=== PATIENT | female | born 1930 | race Caucasian/White ===

== ENCOUNTER → 2016-06-16 | Outpatient (CLI) | payer BC ==
[~2016-06-16] MED LIST: ACET-1257 PO; ADVIN10050 INH; CEPH500C2 PO; CHOL100027 PO; ESCI1TAB6 PO; ESOM20CA PO; FAMO20TA11 PO; FOLI1TAB7 PO; HYDR-5688 PO; LEVO50TA6 PO; MAGIC MIX PO; MELA1TAB5 PO; MULT-188 PO; POLY99.02 OP; PRD/1 PO; RANI150T2 PO; SERT50TA PO; XRL10 PO; ZOLE5INJ INJ
--- NOTE | 2016-06-16 10:24 | DIAGNOSTIC IMAGING REPORT ---
ULTRASOUND ABDOMEN COMPLETE CLINICAL HISTORY: Epigastric abdominal pain. COMPARISON STUDY: Abdominal CT dated 03/27/2014. TECHNIQUE: Real-time, grayscale, and color flow sonography of the abdomen was performed. Images are reviewed in the transverse and longitudinal planes. FINDINGS: Liver: The liver is normal in size and echotexture. There is no intrahepatic biliary ductal dilatation. The main portal vein is patent. Gallbladder: An echogenic 7 mm nonshadowing structure is noted near the gallbladder fundus. This may represent a small amount of tumefactive sludge or small polyp. The gallbladder is otherwise normal in appearance. No gallstones are identified. There is no gallbladder wall thickening or pericholecystic fluid. A sonographic Anderson's sign is reportedly absent. The common bile duct measures up to 0.6 cm in diameter. Pancreas: Visualized portions of the pancreatic head and body are normal in appearance. The pancreas duct is mildly dilated measuring up to 4 mm. This is unchanged in [address] Spleen: The spleen is normal in size and echotexture, measuring 7.1 cm in length. There are small calcified splenic granulomas. Kidneys: The kidneys demonstrate cortical atrophy. There is no hydronephrosis. The right kidney measures 10.0 cm in length and the left kidney measures 9.6 cm in length. No shadowing calculi are identified. Abdominal vasculature: Visualized portions of the abdominal aorta are normal in caliber noting atherosclerotic plaque and regularity. Ascites: None. IMPRESSION: No acute sonographic abnormality is identified. See above. Electronically signed by: Bonifacio Wood M.D. 06/16/2016 10:22 AM Dictated Date/Time: 06/16/2016 10:18 AM
== END | disposition home or self-care (01) ==
LOC: C.ULTRBC 09:00
PROVIDERS: ATTEND Internal Medicine Geriatric Medicine
DX: R10.13 Epigastric pain (principal)

== ENCOUNTER → 2016-06-22 | Outpatient (CLI) | payer BC ==
--- NOTE | 2016-06-22 15:18 | DIAGNOSTIC IMAGING REPORT ---
THORACIC SPINE 3 VIEWS ROUTINE CLINICAL HISTORY: EPIGASTRIC PAIN, E83.52 R39.15 R35.0 COMPARISON STUDY: No previous studies for comparison. FINDINGS: The paraspinal line is not displaced. The bones are osteopenic. There are mild multilevel degenerative changes. No acute fractures or subluxations are visualized on conventional radiographic imaging. No destructive lesions are evident IMPRESSION: Osteopenia. Multilevel degenerative change. No acute fractures are visualized. Electronically signed by: Antony Joe M.D. 06/22/2016 3:16 PM Dictated Date/Time: 06/22/2016 3:16 PM
[2016-06-22 17:00] LABS: URINE APPEARANCE CLEAR (CLEAR); URINE BILIRUBIN NEG (NEG); URINE COLOR YELLOW; URINE NITRITE NEG (NEG); URINE SPECIFIC GRAVITY 1.011 (1.000-1.030); UROBILINOGEN NEG (NEG); ZZUR CULT IF INDIC CLEAN CATCH NO
[2016-06-22 17:15] LABS: MANUAL MICROSCOPIC REQUIRED? NO; REVIEW REQ? NO
[2016-06-22 17:18] LABS: BLOOD UREA NITROGEN 20 mg/dl (7-18); BUN/CREATININE RATIO 18.2 (10-20); CALCIUM 9.1 mg/dl (8.5-10.1); CARBON DIOXIDE 25 mmol/L (21-32); CHLORIDE 107 mmol/L (98-107); GLUCOSE 91 mg/dl (70-99); POTASSIUM 4.8 mmol/L (3.5-5.1); SODIUM 141 mmol/L (136-145)
--- NOTE | 2016-06-27 13:30 | CODING QUERY MEDICAL NECESSITY ---
SUPPORTING DIAGNOSIS NEEDED A supporting diagnosis is required for the test/procedure performed on this patient in order for us to be reimbursed by the patient's insurance. Please provide a supporting diagnosis for the following test/procedure listed below next to the test name along with your signature. *If there is no additional diagnosis for this patient that would support the following test/procedure please document that below next to the test/procedure. Test(s)/Procedure(s) that require a supporting diagnosis: DOS 06/22 * Vitamin B12 DIAGNOSIS: Provider Signature: Date: Thank you Irma Petty Health Information Management Once completed, please kindly fax back to [phone] For questions please call [phone]
== END | disposition home or self-care (01) ==
LOC: C.LABBC 14:50
PROVIDERS: ATTEND Internal Medicine Geriatric Medicine
DX: R10.13 Epigastric pain (principal); R39.15 Urgency of urination; R35.0 Frequency of micturition; I10 Essential (primary) hypertension; E03.9 Hypothyroidism, unspecified; E55.9 Vitamin D deficiency, unspecified; J45.909 Unspecified asthma, uncomplicated; E78.5 Hyperlipidemia, unspecified; J43.9 Emphysema, unspecified; E83.52 Hypercalcemia; S72.91XA Unspecified fracture of right femur, initial encounter for closed fracture; X58.XXXA Exposure to other specified factors, initial encounter; M85.88 Other specified disorders of bone density and structure, other site

== ENCOUNTER → 2016-06-29 | Outpatient (CLI) | payer BC ==
--- NOTE | 2016-06-29 15:17 | DIAGNOSTIC IMAGING REPORT ---
RIGHT SHOULDER MIN 2 VIEWS ROUTINE, RIGHT HUMERUS MIN 2 VIEWS ROUTINE CLINICAL HISTORY: M79.603 Pain of upper [id number] Right COMPARISON STUDY: None. FINDINGS: No fracture or dislocation within the right shoulder or right humerus. The right clavicle is intact. Mild degenerative changes at the glenohumeral joint. Soft tissues are unremarkable. Questionable multiple tiny lucent lesions seen throughout the humerus versus osteopenia. IMPRESSION: 1. No acute fracture dislocation within the right shoulder right humerus. 2. Questionable multiple tiny lucent lesions seen within the right humerus. This could be due to the patient's diffuse osteopenia. However, clinical/laboratory correlation recommended to evaluate for underlying multiple myeloma. Electronically signed by: Yunior Alonzo M.D. 06/29/2016 3:16 PM Dictated Date/Time: 06/29/2016 3:11 PM
--- NOTE | 2016-06-29 15:17 | DIAGNOSTIC IMAGING REPORT ---
RIGHT SHOULDER MIN 2 VIEWS ROUTINE, RIGHT HUMERUS MIN 2 VIEWS ROUTINE CLINICAL HISTORY: M79.603 Pain of upper [id number] Right COMPARISON STUDY: None. FINDINGS: No fracture or dislocation within the right shoulder or right humerus. The right clavicle is intact. Mild degenerative changes at the glenohumeral joint. Soft tissues are unremarkable. Questionable multiple tiny lucent lesions seen throughout the humerus versus osteopenia. IMPRESSION: 1. No acute fracture dislocation within the right shoulder right humerus. 2. Questionable multiple tiny lucent lesions seen within the right humerus. This could be due to the patient's diffuse osteopenia. However, clinical/laboratory correlation recommended to evaluate for underlying multiple myeloma. Electronically signed by: Yunior Alonzo M.D. 06/29/2016 3:16 PM Dictated Date/Time: 06/29/2016 3:11 PM
== END | disposition home or self-care (01) ==
LOC: C.RADBC 14:41
PROVIDERS: ATTEND Internal Medicine Geriatric Medicine
DX: M79.603 Pain in arm, unspecified (principal)

== ENCOUNTER → 2016-06-30 | Outpatient (CLI) | payer BC | END | disposition home or self-care (01) | LOC: C.LABBC 12:29 | PROVIDERS: ATTEND Internal Medicine Geriatric Medicine | DX: M79.603 Pain in arm, unspecified (principal); R93.8 Abnormal findings on diagnostic imaging of other specified body structures ==

== ENCOUNTER 2016-09-24 21:25 | Emergency (ER) | payer BC ==
[~2016-09-24] VITALS: Ht 146.1 cm; Wt 50.8 kg
[~2016-09-24 21:25] MED LIST changes: -ACET-1257 PO; -ADVIN10050 INH; -CEPH500C2 PO; -FAMO20TA11 PO; -FOLI1TAB7 PO; -HYDR-5688 PO; -MAGIC MIX PO; -MELA1TAB5 PO; -PRD/1 PO; -SERT50TA PO; -XRL10 PO
[2016-09-24 21:31] VITALS: TEMP 36.3; Ht 146.1 cm; Wt 50.8 kg
[2016-09-24 21:43] VITALS: O2SAT 96
--- NOTE | 2016-09-24 21:55 | EMERGENCY ROOM VISIT NOTE ---
History Report prepared by Esther: Dominic Garcia Under the Supervision of: Dr. Terence Nava D.O. First contact with patient: 21:42 Chief Complaint: SHORTNESS OF BREATH Stated Complaint: SOB,CHEST PAINS History of Present Illness The patient is an 85 year old female who presents to the Emergency Room with complaints of persistent shortness of breath that started today. The shortness of breath became worse over the past hour. She denies any worsening or reliving factors. She also complains of headache and left-sided rib discomfort rated 4/ 10 in severity. She is a smoker and has a cough at baseline but denies any increased coughing. The patient daughter notes that the patient has also been anxious. Source of History: patient Onset: today Position: other (respiratory) Quality: other (short of breath) Timing: worsening Modifying Factors (Worsening): other (none) Modifying Factors (Relieving): other (none) Associated Symptoms: + chest pain, + headache, No cough Review of Systems See HPI for pertinent positives and negatives. A total of ten systems were reviewed and were otherwise negative. Past Medical & Surgical Medical Problems: (1) ESOPHAGEAL REFLUX (2) Gastric ulcer (3) HYPERTENSION NOS (4) MAL RADHA URETERIC ORIFICE (5) SENILE OSTEOPOROSIS Family History FH: cancer Social History Smoking Status: Current Every Day Smoker Alcohol Use: none Drug Use: none Marital Status: Housing Status: lives with family Occupation Status: retired Current/Historical Medications Scheduled Cholecalciferol (Vitamin D 1000 Unit), 1,000 UNITS PO DAILY Esomeprazole Magnesium (Nexium), 20 MG PO DAILY Famotidine (Pepcid), 20 MG PO QAM Fluticasone Prop/Salmeterol (Advair Diskus 100-50 Mcg/Dose), 1 PUFF INH BID Folic Acid (Folvite), 1 MG PO QAM Levothyroxine Sodium (Levothyroxine Sodium), 50 MCG PO DAILY Melatonin (Kp Melatonin), 3 MG PO HS Multiple Vitamins W/ Minerals (Ocuvite), 1 TAB PO DAILY Prednisone (Prednisone), 3 MG PO DAILY Rivaroxaban (Xarelto), 15 MG PO DAILY Sertraline (Zoloft), 50 MG PO QAM Scheduled PRN Acetaminophen (Tylenol Extra Strength), 1,000 MG PO TID PRN for Pain [Magic Mix], 5 ML PO QID PRN for DIRECTED Allergies Coded Allergies: Nitrofurantoin (Verified Adverse Reaction, Intermediate, RASH, 09/24/16) Physical Exam Vital Signs Date Time Temp Pulse Resp B/P Pulse Ox O2 Delivery O2 Flow Rate FiO2 09/24/16 23:04 68 22 98/72 96 Nasal Cannula 4.0 09/24/16 22:06 Nasal Cannula 2.0 09/24/16 21:56 80 09/24/16 21:43 96 Nasal Cannula 2.0 09/24/16 21:43 96 Nasal Cannula 2.0 09/24/16 21:31 36.3 93 26 128/86 90 Room Air Physical Exam GENERAL: Awake, alert, well-appearing, in no distress HENT: Normocephalic, atraumatic. Oropharynx unremarkable. EYES: Normal conjunctiva. Sclera non-icteric. NECK: Supple. No nuchal rigidity. FROM. No JVD. RESPIRATORY: Clear to auscultation. CARDIAC: Regular rate, normal rhythm. Extremities warm and well perfused. Pulses equal. ABDOMEN: Soft, non-distended. No tenderness to palpation. No rebound or guarding. No masses. RECTAL: Deferred. MUSCULOSKELETAL: Chest examination reveals no tenderness. The back is symmetrical on inspection without obvious abnormality. There is no CVA tenderness to palpation. No joint edema. LOWER EXTREMITIES: Calves are equal size bilaterally and non-tender. No edema. No discoloration. NEURO: Normal sensorium. No sensory or motor deficits noted. SKIN: No rash or jaundice noted. PSYCH: Appears anxious. Medical Decision & Procedures ER Provider Diagnostic Interpretation: X ray results as stated below per my interpretation and radiologist interpretation. Other radiology results as stated below per my review and radiologist interpretation CHEST ONE VIEW PORTABLE HISTORY: Atypical CHEST PAIN COMPARISON: Chest 03/10/2016. FINDINGS: No new focal lung consolidations to suggest pneumonia. No evidence for pulmonary edema. The heart is stable in size. No pleural effusions. No pneumothorax. 8 mm nodular density within the left upper lobe is again noted. Mild emphysema and chronic interstitial thickening persists. IMPRESSION: No significant change compared to the prior study. No acute process. A millimeter nodular density is again noted within the left upper lobe. Electronically signed by: Yunior Alonzo M.D. 09/24/2016 10:44 PM Dictated Date/Time: 09/24/2016 10:42 PM CHEST CTA for PULMONARY ARTERIES CT DOSE: 162.49 mGy.cm HISTORY: Short of breath. TECHNIQUE: Multiaxial CT images of the chest were performed following the intravenous administration of contrast to evaluate the pulmonary arteries. Maximal intensity projection images were also obtained. COMPARISON STUDY: Chest CT 04/14/2014. FINDINGS: No evidence for pulmonary embolus. Biapical pleural-parenchymal scarring, unchanged. Stable partially calcified 7 mm nodular density within the left upper lobe. This corresponds the chest x-ray abnormality. The long-term stability favors a benign process such as scarring. Moderate emphysema. A 5 mm nodule within left upper lobe in image 139. Bibasilar densities consistent with subsegmental atelectasis. The central airways are patent. No pleural effusions. No pneumothorax. Normal caliber thoracic aorta. No evidence for dissection within the ascending aorta or aortic arch. Poor opacification of the descending thoracic aorta limits evaluation for a dissection. No mediastinal or hilar lymphadenopathy. Calcified hepatic and splenic granulomas. IMPRESSION: 1. No evidence for pulmonary embolus. 2. Emphysema. 3. A 5 mm indeterminate pulmonary nodule within the left upper lobe. Please refer to the chart below for recommended follow-up. Electronically signed by: Yunior Alonzo M.D. 09/24/2016 11:18 PM Dictated Date/Time: 09/24/2016 11:10 PM Laboratory Results 09/24/16 21:45 Red Blood Count 5.39, Mean Corpuscular Volume 95.2, Mean Corpuscular Hemoglobin 33.2, Mean Corpuscular Hemoglobin Concent 34.9, Mean Platelet Volume 10.5, Neutrophils (%) (Auto) 62.5, Lymphocytes (%) (Auto) 28.9, Monocytes (%) (Auto) 7.2, Eosinophils (%) (Auto) 0.8, Basophils (%) (Auto) 0.3, Neutrophils # (Auto) 5.45, Lymphocytes # (Auto) 2.53, Monocytes # (Auto) 0.63, Eosinophils # (Auto) 0.07, Basophils # (Auto) 0.03 09/24/16 21:45 Test 09/24/16 21:45 09/24/16 21:52 White Blood Count 8.74 K/uL (4.8-10.8) Red Blood Count 5.39 M/uL (4.2-5.4) Hemoglobin 17.9 g/dL (12.0-16.0) Hematocrit 51.3 % (37-47) Mean Corpuscular Volume 95.2 fL (80-100) Mean Corpuscular Hemoglobin 33.2 pg (25-34) Mean Corpuscular Hemoglobin Concent 34.9 g/dl (32-36) Platelet Count 306 K/uL (130-400) Mean Platelet Volume 10.5 fL (7.4-10.4) Neutrophils (%) (Auto) 62.5 % Lymphocytes (%) (Auto) 28.9 % Monocytes (%) (Auto) 7.2 % Eosinophils (%) (Auto) 0.8 % Basophils (%) (Auto) 0.3 % Neutrophils # (Auto) 5.45 K/uL (1.4-6.5) Lymphocytes # (Auto) 2.53 K/uL (1.2-3.4) Monocytes # (Auto) 0.63 K/uL (0.11-0.59) Eosinophils # (Auto) 0.07 K/uL (0-0.5) Basophils # (Auto) 0.03 K/uL (0-0.2) RDW Standard Deviation 46.2 fL (36.4-46.3) RDW Coefficient of Variation 13.3 % (11.5-14.5) Immature Granulocyte % (Auto) 0.3 % Immature Granulocyte # (Auto) 0.03 K/uL (0.00-0.02) Anion Gap 9.0 mmol/L (3-11) Est Creatinine Clear Calc Drug Dose 24.3 ml/min Estimated GFR () 48.1 Estimated GFR (Non- 41.5 BUN/Creatinine Ratio 15.0 (10-20) Calcium Level 10.0 mg/dl (8.5-10.1) Total Bilirubin 0.3 mg/dl (0.2-1) Direct Bilirubin < 0.1 mg/dl (0-0.2) Aspartate Amino Transf (AST/SGOT) 27 U/L (15-37) Alanine Aminotransferase (ALT/SGPT) 28 U/L (12-78) Alkaline Phosphatase 81 U/L (45-117) Total Protein 8.1 gm/dl (6.4-8.2) Albumin 3.8 gm/dl (3.4-5.0) Bedside D-Dimer > 450 ng/mlFEU (0-450) Bedside Troponin I 0.000 ng/ml (0-0.045) WM-Hov-L-Type Natriuretic Peptide 807 pg/ml (0-1800) Laboratory results reviewed by me Medications Administered Medications (Trade) Dose Ordered Sig/Quentin Route Start Time Stop Time Status Last Admin Dose Admin Ondansetron HCl (Zofran Inj) 4 mg NOW STAT IV 09/24/16 22:15 09/24/16 22:16 DC 09/24/16 22:20 4 MG ECG Indication: SOB/dyspnea Rate (beats per minute): 82 Rhythm: sinus rhythm Findings: PAC, no acute ischemic change, left axis deviation ED Course 2142: The patient was evaluated in room A4b. A complete history and physical exam was performed. 2215: Zofran 4 mg IV. 2335: Reassessed the patient and discussed the workup. She is in no distress and would like to go home. Medical Decision Differential diagnosis includes pneumonia, bronchitis, PE, acute coronary syndrome, anxiety. Patient had an elevated d-dimer patient's CAT scan of the chest was negative for pulmonary embolism. Patient on reexamination is not hypoxic in no distress no current pain at 2330. Patient would like to go home. Discussed the workup with the patient and patient's family at bedside told to return if she has increased pain or any concerns Impression Primary Impression: Chronic obstructive pulmonary disease Additional Impression: Chest pain Scribe Attestation The scribe's documentation has been prepared under my direction and personally reviewed by me in its entirety. I confirm that the note above accurately reflects all work, treatment, procedures, and medical decision making performed by me. Departure Information Dispostion Home / Self-Care Referrals Ronal Knight M.D. (PCP) Forms HOME CARE DOCUMENTATION FORM, IMPORTANT VISIT INFORMATION Patient Instructions ED Dyspnea Shortness of Breath, My [facility] Problem Qualifiers Primary Impression: Chronic obstructive pulmonary disease COPD type: unspecified COPD Qualified Codes: J44.9 - Chronic obstructive pulmonary disease, unspecified Additional Impression: Chest pain Chest pain type: intercostal pain Qualified Codes: R07.82 - Intercostal pain
[2016-09-24 22:02] LABS: BASO % 0.3 %; BASO ABS # 0.03 K/uL (0-0.2); COMPLETE YES; EOS % 0.8 %; HEMATOCRIT 51.3 % (37-47); IG% 0.3 %; LYMPH % 28.9 %; LYMPH ABS # 2.53 K/uL (1.2-3.4); MEAN CELL VOLUME 95.2 fL (80-100); MEAN CORPUSCULAR HEMOGLOBIN 33.2 pg (25-34); MEAN CORPUSCULAR HGB CONC 34.9 g/dl (32-36); MEAN PLATELET VOLUME 10.5 fL (7.4-10.4); MONO % 7.2 %; NEUT % 62.5 %; PLATELET COUNT 306 K/uL (130-400); RED BLOOD COUNT 5.39 M/uL (4.2-5.4); WHITE BLOOD COUNT 8.74 K/uL (4.8-10.8)
[2016-09-24] MEDS ORDERED: ONDANSETRON INJ 2 MG/ML 2 ML VIAL IV STA (22:15)
[2016-09-24 22:17] LABS: POINT OF CARE PRO-BNP 807 pg/ml (0-1800)
[2016-09-24 22:19] LABS: ALT/SGPT 28 U/L (12-78); BLOOD UREA NITROGEN 18 mg/dl (7-18); CARBON DIOXIDE 28 mmol/L (21-32); CHLORIDE 104 mmol/L (98-107); GLUCOSE 131 mg/dl (70-99); POTASSIUM 3.7 mmol/L (3.5-5.1); SODIUM 141 mmol/L (136-145)
[2016-09-24 22:22] LABS: ALKALINE PHOSPHATASE 81 U/L (45-117); AST/SGOT 27 U/L (15-37)
[2016-09-24] MEDS ORDERED: OPTIRAY 320 IV PRN (22:30)
[2016-09-24] MEDS ORDERED: SERT50TA PO (22:41)
[2016-09-24] MEDS ORDERED: XRL10 PO (22:41)
[2016-09-24] MEDS ORDERED: ADVIN10050 INH (22:41)
[2016-09-24] MEDS ORDERED: FOLI1TAB7 PO (22:41)
[2016-09-24] MEDS ORDERED: ACET-1257 PO (22:41)
[2016-09-24] MEDS ORDERED: MAGIC MIX PO (22:41)
[2016-09-24] MEDS ORDERED: PRD/1 PO (22:41)
[2016-09-24] MEDS ORDERED: MELA1TAB5 PO (22:41)
[2016-09-24] MEDS ORDERED: FAMO20TA11 PO (22:41)
--- NOTE | 2016-09-24 22:45 | DIAGNOSTIC IMAGING REPORT ---
CHEST ONE VIEW PORTABLE HISTORY: Atypical CHEST PAIN COMPARISON: Chest 03/10/2016. FINDINGS: No new focal lung consolidations to suggest pneumonia. No evidence for pulmonary edema. The heart is stable in size. No pleural effusions. No pneumothorax. 8 mm nodular density within the left upper lobe is again noted. Mild emphysema and chronic interstitial thickening persists. IMPRESSION: No significant change compared to the prior study. No acute process. A millimeter nodular density is again noted within the left upper lobe. Electronically signed by: Yunior Alonzo M.D. 09/24/2016 10:44 PM Dictated Date/Time: 09/24/2016 10:42 PM
--- NOTE | 2016-09-24 23:19 | DIAGNOSTIC IMAGING REPORT ---
CHEST CTA for PULMONARY ARTERIES CT DOSE: 162.49 mGy.cm HISTORY: Short of breath. TECHNIQUE: Multiaxial CT images of the chest were performed following the intravenous administration of contrast to evaluate the pulmonary arteries. Maximal intensity projection images were also obtained. COMPARISON STUDY: Chest CT 04/14/2014. FINDINGS: No evidence for pulmonary embolus. Biapical pleural-parenchymal scarring, unchanged. Stable partially calcified 7 mm nodular density within the left upper lobe. This corresponds the chest x-ray abnormality. The long-term stability favors a benign process such as scarring. Moderate emphysema. A 5 mm nodule within left upper lobe in image 139. Bibasilar densities consistent with subsegmental atelectasis. The central airways are patent. No pleural effusions. No pneumothorax. Normal caliber thoracic aorta. No evidence for dissection within the ascending aorta or aortic arch. Poor opacification of the descending thoracic aorta limits evaluation for a dissection. No mediastinal or hilar lymphadenopathy. Calcified hepatic and splenic granulomas. IMPRESSION: 1. No evidence for pulmonary embolus. 2. Emphysema. 3. A 5 mm indeterminate pulmonary nodule within the left upper lobe. Please refer to the chart below for recommended follow-up. Electronically signed by: Yunior Alonzo M.D. 09/24/2016 11:18 PM Dictated Date/Time: 09/24/2016 11:10 PM
[2016-09-24 23:50] VITALS: BP 152/92; PULSE 88; O2SAT 91
== END 2016-09-24 23:50 | disposition home or self-care (01) ==
LOC: C.EDB 21:26 → C.EDA 23:50
DX: J44.9 Chronic obstructive pulmonary disease, unspecified (principal); R07.9 Chest pain, unspecified; I10 Essential (primary) hypertension; K21.9 Gastro-esophageal reflux disease without esophagitis; M81.0 Age-related osteoporosis without current pathological fracture; F17.200 Nicotine dependence, unspecified, uncomplicated; Z87.11 Personal history of peptic ulcer disease; Z79.899 Other long term (current) drug therapy; Z88.8 Allergy status to other drugs, medicaments and biological substances; Z80.9 Family history of malignant neoplasm, unspecified; Z87.448 Personal history of other diseases of urinary system

== ENCOUNTER → 2016-11-08 | Outpatient (CLI) | payer BC ==
[~2016-11-08] MED LIST changes: +ACET-1257 PO; +ADVIN10050 INH; -ESCI1TAB6 PO; +FAMO20TA11 PO; +FOLI1TAB7 PO; +HYDR-5688 PO; +MAGIC MIX PO; +MELA1TAB5 PO; -POLY99.02 OP; +PRD/1 PO; -RANI150T2 PO; +SERT50TA PO; +XRL10 PO; -ZOLE5INJ INJ
[2016-11-08 13:54] LABS: BLOOD UREA NITROGEN 19 mg/dl (7-18); BUN/CREATININE RATIO 14.5 (10-20)
== END | disposition home or self-care (01) ==
LOC: C.LAB 12:08
PROVIDERS: ATTEND Urology
DX: C67.9 Malignant neoplasm of bladder, unspecified (principal)

== ENCOUNTER 2016-11-11 20:48 | Emergency (ER) | payer BC ==
[~2016-11-11] VITALS: Ht 144.8 cm; Wt 51.9 kg
[~2016-11-11 20:48] MED LIST changes: -HYDR-5688 PO
[2016-11-11 20:51] VITALS: TEMP 36.8; Ht 144.8 cm; Wt 51.9 kg
--- NOTE | 2016-11-11 22:03 | DIAGNOSTIC IMAGING REPORT ---
HEAD CT NONCONTRAST CT DOSE: 537.48 mGy.cm HISTORY: fall/head injury/ TECHNIQUE: Multiaxial CT images of the head were performed without the use of intravenous contrast. Automated exposure control was utilized for this study. Comparison: Head CT 03/10/2016. Findings: The paranasal sinuses and mastoid air cells are clear. The calvarium and skull base are intact. There is no mass, hematoma, midline shift, acute infarct. White matter hypodensity is nonspecific but suggestive of microvascular ischemic change. The ventricles and sulci demonstrate mild age-related involutional changes. Mild right lateral scalp swelling with a small laceration. Impression: No acute intracranial abnormality. Atrophy and microvascular ischemic changes. Right-sided scalp injury. Electronically signed by: Yunior Alonzo M.D. 11/11/2016 10:02 PM Dictated Date/Time: 11/11/2016 9:57 PM
--- NOTE | 2016-11-11 22:49 | EMERGENCY ROOM VISIT NOTE ---
ED Visit Note First contact with patient: 21:05 Staff note: I have reviewed the Patients chart and have discussed this case with my PA. I generally agree with the ED note and findings.
[2016-11-11 23:00] VITALS: BP 161/82; PULSE 91; O2SAT 98
[2016-11-11] MEDS ORDERED: HYDR-5688 PO (23:21)
--- NOTE | 2016-11-11 23:21 | EMERGENCY ROOM VISIT NOTE ---
History First contact with patient: 21:05 Chief Complaint: FALL Stated Complaint: HEAD BUMP, SORE RIBS AND ARM History of Present Illness The patient is a 86 year old female who presents to the Emergency Room with complaints of head injury and right rib pain. The patient states that she tripped over the leg of a rocking chair and fell forward striking the right side of her head on a step. She landed on her right ribs on the floor. The patient denies any loss of consciousness, dizziness, visual changes or headache. The patient denies any neck or back pain. The patient is mainly complaining of right rib pain. She has slight increased pain with inspiration and increased pain with movement. The patient is not on any blood thinners. Review of Systems 10 system review was performed and was negative unless stated otherwise history of present illness. Past Medical/Surgical History Medical Problems: (1) ESOPHAGEAL REFLUX (2) Gastric ulcer (3) HYPERTENSION NOS (4) MAL RADHA URETERIC ORIFICE (5) SENILE OSTEOPOROSIS Family History FH: cancer Social History Smoking Status: Current Every Day Smoker Alcohol Use: none Drug Use: none Marital Status: Housing Status: lives with family Occupation Status: retired Current/Historical Medications Scheduled Cholecalciferol (Vitamin D 1000 Unit), 1,000 UNITS PO DAILY Esomeprazole Magnesium (Nexium), 20 MG PO DAILY Famotidine (Pepcid), 20 MG PO QAM Fluticasone Prop/Salmeterol (Advair Diskus 100-50 Mcg/Dose), 1 PUFF INH BID Folic Acid (Folvite), 1 MG PO QAM Levothyroxine Sodium (Levothyroxine Sodium), 50 MCG PO DAILY Melatonin ( Melatonin), 3 MG PO HS Multiple Vitamins W/ Minerals (Ocuvite), 1 TAB PO DAILY Prednisone (Prednisone), 3 MG PO DAILY Sertraline (Zoloft), 50 MG PO QAM Scheduled PRN Acetaminophen (Tylenol Extra Strength), 1,000 MG PO TID PRN for Pain [Magic Mix], 5 ML PO QID PRN for DIRECTED Allergies Coded Allergies: Nitrofurantoin (Verified Adverse Reaction, Intermediate, RASH, 11/11/16) Physical Exam Vital Signs Date Time Temp Pulse Resp B/P (MAP) Pulse Ox O2 Delivery O2 Flow Rate FiO2 11/11/16 23:00 91 16 161/82 98 Room Air 11/11/16 20:51 36.8 96 18 170/93 96 Room Air Physical Exam GENERAL: 86-year-old white female appears in no acute distress. MENTAL Status: Alert and oriented 3. HEAD: Palpable lump on the right parietal region as well as some ecchymosis and a superficial abrasion. No deep lacerations visualized. No active bleeding. The wound looks clean. EYES: PERRLA. EOMs intact. EARS: Canals clear. TMs without hemotympanum a.m. NECK: Supple, no lymphadenopathy noted. No carotid bruits noted. LUNGS: Clear auscultation without wheezes rales or rhonchi. CARDIAC: Regular rate and rhythm without murmur. Pulses is full and equal throughout. CHEST WALL: No gross bony deformity noted. No erythema, edema or ecchymosis noted. The patient has point tenderness palpation over the right anterior lower ribs. Remainder chest wall is nontender. Medical Decision & Procedures ER Provider Diagnostic Interpretation: HEAD CT NONCONTRAST CT DOSE: 537.48 mGy.cm HISTORY: fall/head injury/ TECHNIQUE: Multiaxial CT images of the head were performed without the use of intravenous contrast. Automated exposure control was utilized for this study. Comparison: Head CT 03/10/2016. Findings: The paranasal sinuses and mastoid air cells are clear. The calvarium and skull base are intact. There is no mass, hematoma, midline shift, acute infarct. White matter hypodensity is nonspecific but suggestive of microvascular ischemic change. The ventricles and sulci demonstrate mild age-related involutional changes. Mild right lateral scalp swelling with a small laceration. Impression: No acute intracranial abnormality. Atrophy and microvascular ischemic changes. Right-sided scalp injury. Electronically signed by: Yunior Alonzo M.D. 11/11/2016 10:02 PM ED Course The patient was evaluated. The patient's EMR medication list were reviewed. The patient was offered pain medication but declined. The patient was independently evaluated by Dr. Donnelly who agreed with treatment plan. CT the head was ordered and interpreted by the radiologist as above without any acute findings. The x-ray of the ribs were performed and read by myself without any acute fractures or pneumothorax. The x-ray report later be interpreted by the radiologist. The patient's blood pressure was elevated while in the emergency room therefore the patient was informed that she will require a blood pressure check follow-up with her family physician. The patient verbalized understanding. The patient was informed of all x-rays CT findings. The patient was discharged home in stable condition. Medical Decision Differential includes: Acute intracranial bleed, trauma, meningitis, encephalitis, increased intracranial pressure, mass or mass effect, facial or dental infection, temporal arteritis, CVA, TIA, acute hypertensive emergency, sinusitis, carbon monoxide exposure. Differential for ribs include fracture versus contusion Impression Primary Impression: Head contusion Additional Impression: Contusion of rib on right side Departure Information Dispostion Home / Self-Care Condition GOOD Prescriptions Hydrocodone/Acetaminophen 5MG/325MG ([place] 5MG/325MG) Tab 1 TABLET PO Q6 Y for Pain, #9 TAB For Initial Treatment Prov: Rossy Ahumada PA-C 11/11/16 Referrals Ronal Knight M.D. (PCP) Forms HOME CARE DOCUMENTATION FORM, IMPORTANT VISIT INFORMATION Patient Instructions ED Head Injury Closed, [facility] Additional Instructions Read head injury handout instructions. Any problems return to ER immediately. Take Tylenol as needed for your rib pain. For more severe pain take [place] as directed. Do not drive while taking the [place]. If you aren't taking [place] did not take additional Tylenol. Recommend bed and making sure you take in deep inspiration several times a day until rib pain has improved. Your blood pressure was elevated at today's ER visit. Recommend follow with family doctor in 2 days for blood pressure recheck. Problem Qualifiers Primary Impression: Head contusion Encounter type: initial encounter Contusion of head detail: scalp Qualified Codes: S00.03XA - Contusion of scalp, initial encounter Additional Impression: Contusion of rib on right side Encounter type: initial encounter Qualified Codes: S20.211A - Contusion of right front wall of thorax, initial encounter
--- NOTE | 2016-11-11 23:23 | DIAGNOSTIC IMAGING REPORT ---
RIGHT RIBS UNILATERAL WITH PA CHEST CLINICAL HISTORY: right anterior lower rib pain/fall Right COMPARISON STUDY: Chest 09/24/2016. FINDINGS: Mild diffuse interstitial thickening, unchanged. The heart is normal in size. Small nodular density within the left upper lobe is also stable. No pneumothorax. No acute fractures. IMPRESSION: No acute rib fractures. No pneumothorax. Electronically signed by: Yunior Alonzo M.D. 11/11/2016 11:22 PM Dictated Date/Time: 11/11/2016 11:18 PM
== END 2016-11-11 23:38 | disposition home or self-care (01) ==
LOC: C.EDB 20:50 → C.EDD 23:38
DX: S00.03XA Contusion of scalp, initial encounter (principal); S20.211A Contusion of right front wall of thorax, initial encounter; W01.198A Fall on same level from slipping, tripping and stumbling with subsequent striking against other object, initial encounter; S00.91XA Abrasion of unspecified part of head, initial encounter; K21.9 Gastro-esophageal reflux disease without esophagitis; I10 Essential (primary) hypertension; M81.0 Age-related osteoporosis without current pathological fracture; F17.200 Nicotine dependence, unspecified, uncomplicated; Z85.54 Personal history of malignant neoplasm of ureter

== ENCOUNTER → 2016-11-16 | Outpatient (CLI) | payer BC ==
[~2016-11-16] MED LIST changes: +HYDR-5688 PO; +OPTIRAY 320 IV PRN; -XRL10 PO
--- NOTE | 2016-11-16 12:37 | DIAGNOSTIC IMAGING REPORT ---
CT UROGRAM CLINICAL HISTORY: Bladder cancer. COMPARISON STUDY: Abdominal CT dated 03/27/2014 and 11/15/2011. Chest CT dated 09/24/2016. TECHNIQUE: Before and following the IV administration of 92 cc of Optiray 320, CT urogram of the abdomen and pelvis is performed from the lung bases to the proximal femora. Images are reviewed in the axial, sagittal, and coronal planes. IV contrast was administered without complication. CT DOSE: 705.21 mGycm FINDINGS: Lung bases: The heart is normal in size and without pericardial effusion. The coronary arteries are densely calcified. Pericardial thickening is observed. Advanced emphysema is identified. There are calcified splenic granulomas. Bibasilar scarring versus atelectasis is similar to the 09/24/[address] No airspace consolidation is identified typical for pneumonia and there is no pleural effusion. Liver: The contrast-enhanced liver is normal in size, contour, and attenuation. There is no intrahepatic biliary ductal dilatation. The hepatic veins and portal veins are patent. There are scattered calcified hepatic granulomas. Gallbladder: Unremarkable. Spleen: Normal in size and attenuation. Pancreas: Atrophic and grossly unremarkable. Adrenal glands: Unremarkable. Kidneys and ureters: The contrast enhanced kidneys are atrophic and without hydronephrosis. An extrarenal pelvis is noted on the right. There is a single punctate nonobstructing renal calculus seen in each kidney on the unenhanced series. The kidneys enhance and excrete symmetrically. Scattered subcentimeter cortical hypodensities likely represent cysts but are too small for definitive characterization. There is no enhancing renal cortical mass lesion identified. There is no evidence of urothelial lesion within the renal pelvis bilaterally or along the course of either ureter. Abdominal vasculature: The abdominal aorta is normal in course and caliber noting advanced atherosclerotic calcification. 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 Bowel: The small bowel and colon are normal in course and caliber. There is advanced sigmoid diverticulosis without CT evidence of acute diverticulitis. Mild to moderate colonic fecal retention is observed. The appendix is not identified. Peritoneum: There is no intraperitoneal free air or abdominal ascites. Lymphadenopathy: None. Pelvic viscera: Evaluation of the pelvis is degraded by orthopedic hardware in the right hip. The uterus is surgically absent. No adnexal lesion is seen. The bladder is partially decompressed and normal as visualized by CT. Findings suggest pelvic floor prolapse. Skeletal structures: The skeletal structures are heterogeneously osteopenic. Mild lumbosacral spondylosis is observed. No lytic or blastic bony lesions are seen. There is chronic posttraumatic change involving the right proximal femur with intertrochanteric and intramedullary nails in place. There are healed bilateral rib fractures. IMPRESSION: 1. The partially decompressed bladder is normal as visualized by CT. If further assessment of the bladder is desired then cystoscopy would be appropriate. 2. There is no evidence of metastatic disease in the abdomen or pelvis. 3. The kidneys are atrophic and without hydronephrosis. A punctate nonobstructing calculus is identified in each kidney. 4. No enhancing renal cortical mass is identified. No evidence of urothelial lesion is seen within the renal pelvis bilaterally or along the course of the ureters. 5. Advanced sigmoid diverticulosis without CT evidence of acute diverticulitis. 6. Severe emphysema. 7. Additional findings as above. Electronically signed by: Bonifacio Wood M.D. 11/16/2016 12:36 PM Dictated Date/Time: 11/16/2016 12:23 PM
== END | disposition home or self-care (01) ==
LOC: C.CTS 11:33
PROVIDERS: ATTEND Urology
DX: C67.9 Malignant neoplasm of bladder, unspecified (principal); N20.0 Calculus of kidney; K57.30 Diverticulosis of large intestine without perforation or abscess without bleeding; J43.9 Emphysema, unspecified

== ENCOUNTER → 2016-11-16 | Outpatient (CLI) | payer BC ==
[~2016-11-16] MED LIST changes: -OPTIRAY 320 IV PRN
== END | disposition home or self-care (01) ==
LOC: C.PATHSPEC 17:09
PROVIDERS: ATTEND Urology
DX: C67.9 Malignant neoplasm of bladder, unspecified (principal)